=== PATIENT | male | born 1950 | race African-American/Black ===

== ENCOUNTER 2021-03-22 04:07 | Inpatient (IN) | payer MEDICARE ==
[~2021-03-22] VITALS: Ht 182.9 cm; Wt 63.5 kg
[2021-03-22 05:52] LABS: BASOPHILS % 0.9 % (0.0-2.0); EOSINOPHILS % 0.9 % (0.0-5.0); HEMATOCRIT. 35.3 % (42.0-52.0); HEMOGLOBIN. 11.8 g/dL (14.0-18.0); LYMPHOCYTES % 28.1 % (20.0-50.0); MEAN CORPUSCULAR HEMOGLOBIN 29.4 pg (28.0-32.0); MEAN CORPUSCULAR VOLUME 87.7 fL (80.0-94.0); MEAN PLATELET VOLUME 7.3 fl (7.4-10.4); MONOCYTES % 10.7 % (2.0-8.0); NEUTROPHILS % 59.4 % (40.0-76.0); PLATELET 175 x1000/uL (130-400); RED BLOOD CELL COUNT 4.02 mill/uL (4.7-6.1); RED CELL DISTRIBUTION WIDTH 15.1 % (11.6-14.6)
[2021-03-22] MEDS ORDERED: ACETAMINOPHEN 325MG TABLET PO ONE (06:00)
[2021-03-22 06:01] LABS: PARTIAL THROMBOPLASTIN TIME 26.7 sec (23.4-31.0); PROTHROMBIN TIME 11.1 sec (9.6-11.0)
[2021-03-22 06:04] LABS: CHLORIDE 93 mEq/L (98-107)
[2021-03-22] MEDS ORDERED: MORPHINE SULFATE 4 MG/ML CPJ (NOT FOR IM USE) IV ONE (07:00)
[2021-03-22] MEDS ORDERED: IOHEXOL-350 100 ML BOTTLE ONE (07:54)
[2021-03-22 08:45] LABS: CLARITY URINE CLEAR (CLEAR); COLOR URINE YELLOW (YELLOW); KETONES URINE TRACE (NEGATIVE); LEUKOCYTE ESTERASE URINE TRACE (NEGATIVE); NITRITE URINE NEGATIVE (NEGATIVE); OCCULT BLOOD URINE 2+ (NEGATIVE); PROTEIN URINE NEGATIVE (NEGATIVE); SPECIFIC GRAVITY URINE 1.015 (1.005-1.030)
[2021-03-22] MEDS ORDERED: SODIUM CHLORIDE 0.9% 1,000 ML IV ONE (08:45)
[2021-03-22] MEDS ORDERED: SODIUM CHLORIDE 0.9% 1,000 ML IV SCH (12:30)
[2021-03-22] MEDS ORDERED: CLONIDINE 0.1MG TABLET PO PRN (14:30)
[2021-03-22] MEDS ORDERED: DIPHENHYDRAMINE 50MG/ML VIAL IV PRN (14:30)
[2021-03-22] MEDS ORDERED: ACETAMINOPHEN 325MG TABLET PO PRN ×2 (14:30)
[2021-03-22] MEDS ORDERED: GUAIFENESIN 200MG/10ML SUGAR FREE UDC PO PRN (14:30)
[2021-03-22] MEDS ORDERED: IPRATROPIUM/ALBUTEROL 0.5-3(2.5)MG/3ML NEB HHN PRN (14:30)
[2021-03-22] MEDS ORDERED: DOCUSATE SODIUM 100MG CAPSULE PO PRN (14:30)
[2021-03-22] MEDS ORDERED: ACETAMINOPHEN 650MG SUPP PR PRN (14:30)
[2021-03-22] MEDS ORDERED: ONDANSETRON HCL 4MG/2ML INJ IV PRN (14:30)
[2021-03-22] MEDS ORDERED: LORAZEPAM 0.5MG TABLET PO PRN (14:30)
[2021-03-22] MEDS ORDERED: MAGNESIUM/ALUMINUM HYDROXIDE/SIMETHICONE 30ML UDC PO PRN (14:30)
[2021-03-22] MEDS ORDERED: NALOXONE HCL 0.4MG/ML VIAL IV PRN (15:15)
[2021-03-22] MEDS: ENOXAPARIN 40MG/0.4ML SYR SUBCUT SCH (15:27)
[2021-03-22] MEDS: HYDROCODONE/ACETAMINOPHEN 5/325MG TABLET PO PRN (15:27)
[2021-03-22] MEDS: DEXT 5%/0.45% NACL 1000ML 1,000 ML IV SCH (15:41)
[2021-03-23] MEDS: DEXT 5%/0.45% NACL 1000ML 1,000 ML IV SCH ×2 (01:20→12:49)
[2021-03-23] MEDS: HYDROCODONE/ACETAMINOPHEN 5/325MG TABLET PO PRN (05:54)
[2021-03-23 06:04] LABS: BASOPHILS % 0.6 % (0.0-2.0); EOSINOPHILS % 1.2 % (0.0-5.0); HEMATOCRIT. 36.5 % (42.0-52.0); HEMOGLOBIN. 12.2 g/dL (14.0-18.0); LYMPHOCYTES % 20.3 % (20.0-50.0); MEAN CORPUSCULAR HEMOGLOBIN 29.2 pg (28.0-32.0); MEAN CORPUSCULAR VOLUME 87.4 fL (80.0-94.0); MEAN PLATELET VOLUME 7.2 fl (7.4-10.4); MONOCYTES % 10.1 % (2.0-8.0); NEUTROPHILS % 67.8 % (40.0-76.0); PLATELET 170 x1000/uL (130-400); RED BLOOD CELL COUNT 4.17 mill/uL (4.7-6.1); RED CELL DISTRIBUTION WIDTH 14.9 % (11.6-14.6)
[2021-03-23 06:10] LABS: CHLORIDE 93 mEq/L (98-107)
[2021-03-23 06:20] LABS: LDL CHOLESTEROL 74 mg/dL (5-100)
[2021-03-23 06:21] LABS: CREATINE KINASE 251 IU/L (39-308); HDL CHOLESTEROL 84 mg/dL (40-59); T4 FREE 1.22 ng/dL (0.76-1.46)
[2021-03-23 06:38] LABS: HEPATITIS B SURFACE ANTIGEN NEGATIVE
[2021-03-23 08:40] LABS: PROSTRATE SPECIFIC AG TOTAL 564.07 ng/mL (0.0-4.0)
[2021-03-23 13:30] VITALS: BP 122/78
[2021-03-23] MEDS ORDERED: TRAMADOL 50MG TABLET PO PRN (14:15)
[2021-03-23] MEDS ORDERED: MORPHINE SULFATE 2 MG/ML CPJ (NOT FOR IM USE) IV PRN (14:15)
[2021-03-23] MEDS: ASPIRIN 81MG EC TABLET PO SCH (15:45)
[2021-03-23] MEDS: ENOXAPARIN 40MG/0.4ML SYR SUBCUT SCH (15:45)
[2021-03-23 16:00] VITALS: BP 108/61
[2021-03-23 20:00] VITALS: BP 118/65
[2021-03-24] VITALS: BP 110/58
[2021-03-24 04:00] VITALS: BP 99/58
[2021-03-24] MEDS: DEXT 5%/0.45% NACL 1000ML 1,000 ML IV SCH ×2 (04:57→17:00)
[2021-03-24 05:39] LABS: CHLORIDE 94 mEq/L (98-107)
[2021-03-24 06:12] LABS: BASOPHILS % 0.4 % (0.0-2.0); EOSINOPHILS % 0.4 % (0.0-5.0); HEMOGLOBIN. 11.1 g/dL (14.0-18.0); LYMPHOCYTES % 16.5 % (20.0-50.0); MEAN CORPUSCULAR HEMOGLOBIN 29.2 pg (28.0-32.0); MEAN CORPUSCULAR VOLUME 86.9 fL (80.0-94.0); MEAN PLATELET VOLUME 7.4 fl (7.4-10.4); MONOCYTES % 11.7 % (2.0-8.0); PLATELET 174 x1000/uL (130-400); RED BLOOD CELL COUNT 3.79 mill/uL (4.7-6.1); RED CELL DISTRIBUTION WIDTH 14.9 % (11.6-14.6)
[2021-03-24 08:00] VITALS: BP 126/61
[2021-03-24] MEDS ORDERED: BICALUTAMIDE 50 MG TABLET PO SCH (09:00)
[2021-03-24] MEDS: ASPIRIN 81MG EC TABLET PO SCH (09:15)
[2021-03-24] MEDS: ENOXAPARIN 40MG/0.4ML SYR SUBCUT SCH (09:15)
[2021-03-24 12:00] VITALS: BP 119/73
[2021-03-24 16:00] VITALS: BP 105/58
[2021-03-24 20:00] VITALS: BP 97/57
[2021-03-28 20:53] LABS: CARCINO EMBRYONIC ANTIGEN 1.8 ng/ml
== END 2021-03-24 20:43 | disposition home or self-care (01) | DRG 552 ==
LOC: ER 04:07 → MICUSO 14:00 → EDBEDREQ 14:13 → 7EST 03-23 07:26 → MICUSO 03-23 07:30 → 7EST 03-23 11:25
PROVIDERS: ADMIT Family Medicine Adult Medicine; ATTEND Family Medicine Adult Medicine
DX: M48.02 Spinal stenosis, cervical region (principal); C79.51 Secondary malignant neoplasm of bone; G95.20 Unspecified cord compression; C77.9 Secondary and unspecified malignant neoplasm of lymph node, unspecified; C78.7 Secondary malignant neoplasm of liver and intrahepatic bile duct; E87.1 Hypo-osmolality and hyponatremia; E87.0 Hyperosmolality and hypernatremia; E44.1 Mild protein-calorie malnutrition; Z68.1 Body mass index [BMI] 19.9 or less, adult; M48.061 Spinal stenosis, lumbar region without neurogenic claudication; C61 Malignant neoplasm of prostate; M19.90 Unspecified osteoarthritis, unspecified site; D64.9 Anemia, unspecified; B19.20 Unspecified viral hepatitis C without hepatic coma; F12.90 Cannabis use, unspecified, uncomplicated; N20.0 Calculus of kidney; N32.0 Bladder-neck obstruction; N40.0 Benign prostatic hyperplasia without lower urinary tract symptoms; Z83.3 Family history of diabetes mellitus; R59.0 Localized enlarged lymph nodes; R74.01 Elevation of levels of liver transaminase levels; E87.8 Other disorders of electrolyte and fluid balance, not elsewhere classified; D63.8 Anemia in other chronic diseases classified elsewhere; D63.0 Anemia in neoplastic disease
CPT/HCPCS: 36415; 71045; 71275; 72141; 72146; 72148; 74018; 74176; 80048; 80053; 80061; 80076; 81003; 82330; 82378; 82550; 83880; 84153; 84439; 84443; 84484; 84550; 85025; 86705; 86709; 86803; 87340; 93005; 93970; 97165; 99285; C1893; J1650; J2270; J7030; Q9967; G0103